=== PATIENT | male | born 1970 | race Caucasian/White ===

== ENCOUNTER 2017-04-13 02:16 | Observation (INO) | payer OTHER ==
--- NOTE | 2017-04-13 02:46 | ED PDOC ---
Arrival/HPI - General Chief Complaint: Abdominal Pain Time Seen by Provider: 04/13/17 02:24 Historian: Patient - History of Present Illness Narrative History of Present Illness (Text): 04/13/17 02:35 Dre Magdaleno is a 47 year old male, with no significant past medical history, who presents to the Emergency department complaining of epigastric pain. Patient states at 18:00 yesterday he began experiencing epigastric pain after eating earlier in the day but denies any abdominal pain currently. Patient also reports associated nausea and vomiting. Patient denies any fever, chills, chest pain, shortness of breath, diarrhea, urinary symptoms, back pain, neck pain, headache, dizziness, or any other complaints. Time/Duration: 4-6 hours Symptom Onset: Gradual Symptom Course: Improving Activities at Onset: Rest, Light Context: Home Past Medical History - Provider Review Nursing Documentation Reviewed: Yes - Psychiatric Hx Substance Use: No - Surgical History Hx Musculoskeletal Surgery: Yes (left shoulder) Family/Social History - Physician Review Nursing Documentation Reviewed: Yes Family/Social History: No Known Family HX Smoking Status: Never Smoked Hx Alcohol Use: Yes Frequency of alcohol use: Socially Hx Substance Use: No Allergies/Home Meds Allergies/Adverse Reactions: Allergies No Known Allergies Allergy (Verified 04/13/17 02:35) Review of Systems - Physician Review All systems were reviewed & negative as marked: Yes - Review of Systems Constitutional: Normal. absent: Fevers Eyes: Normal ENT: Normal Respiratory: Normal Cardiovascular: Normal. absent: Chest Pain Gastrointestinal: Abdominal Pain, Nausea, Vomiting. absent: Diarrhea Genitourinary Male: Normal. absent: Dysuria, Frequency, Hematuria, Urinary Output Changes Musculoskeletal: Normal. absent: Back Pain, Neck Pain Skin: Normal. absent: Rash Neurological: Normal. absent: Headache, Dizziness Endocrine: Normal Hemo/Lymphatic: Normal Psychiatric: Normal Physical Exam Vital Signs Reviewed: Yes Vital Signs Temp Pulse Resp BP Pulse Ox 04/13/17 05:40 98.2 F 77 18 124/84 100 04/13/17 04:21 72 13 139/88 100 04/13/17 02:38 98.6 F 79 16 135/88 98 Temperature: Afebrile Blood Pressure: Normal Pulse: Regular Respiratory Rate: Normal Appearance: Positive for: Well-Appearing, Non-Toxic, Comfortable Pain Distress: None Mental Status: Positive for: Alert and Oriented X 3 - Systems Exam Head: Present: Atraumatic, Normocephalic Pupils: Present: PERRL Extroacular Muscles: Present: EOMI Conjunctiva: Present: Normal Mouth: Present: Moist Mucous Membranes Neck: Present: Normal Range of Motion Respiratory/Chest: Present: Clear to Auscultation, Good Air Exchange. No: Respiratory Distress, Accessory Muscle Use Cardiovascular: Present: Regular Rate and Rhythm, Normal S1, S2. No: Murmurs Abdomen: Present: Normal Bowel Sounds. No: Tenderness, Distention, Peritoneal Signs Back: Present: Normal Inspection Upper Extremity: Present: Normal Inspection. No: Cyanosis, Edema Lower Extremity: Present: Normal Inspection. No: Edema Neurological: Present: GCS=15, CN II-XII Intact, Speech Normal Skin: Present: Warm, Dry, Normal Color. No: Rashes Psychiatric: Present: Alert, Oriented x 3, Normal Insight, Normal Concentration Medical Decision Making ED Course and Treatment: 04/13/17 02:35 Impression: 47 year old male complaining of epigastric pain, nausea, and vomiting. Plan: -- CT Abdomen and Pelvis with IV contrast -- EKG -- Labs, cardiac enzymes, amylase, lipase -- UA -- IV fluids -- Zofran -- Reassess and disposition Progress Notes: Reviewed EKG, NSR at [address]-segment elevations or depressions, no T-wave inversions, normal intervals. 04/13/17 04:13 Reviewed radiology, CT Abdomen and Pelvis shows: Findings are consistent with small bowel enteritis. There is mild small bowel dilation and airfluid levels suggestive of an ileus versus partial obstruction. 04/13/17 04:14 Case discussed with surgical processor process control specialist, who is aware and agrees with plan. 04/13/17 04:[address] Van, who is aware and agrees with plan. Accepts pt in to her service. Pt will go to [facility] observation for abdominal pain and intestinal obstruction. Requests Dr. Santo on consult. Pt is no acute distress. Discussed results and hospital observation plan with pt , who verbalizes understanding. Pt agreeable with plan. - Lab Interpretations Microbiology Results: Microbiology Results 04/13/17 03:00 Blood-Venous Blood Culture - Preliminary NO GROWTH AFTER 24 HOURS 04/13/17 02:45 Blood-Venous Blood Culture - Preliminary NO GROWTH AFTER 24 HOURS Lab Results: 04/13/17 02:45 04/13/17 02:45 Lab Results 04/13/17 04:10: Urine Color Yellow, Urine Appearance Clear, Urine pH 7.5, Ur Specific [place] 1.010, Urine Protein Negative, Urine Glucose (UA) Negative, Urine Ketones 15 H, Urine Blood Negative, Urine Nitrate Negative, Urine Bilirubin Negative, Urine Urobilinogen 0.2, Ur Leukocyte Esterase Negative 04/13/17 03:45: pO2 87 H, VBG pH 7.41, VBG pCO2 37.0 L, VBG HCO3 23.5, VBG Total CO2 24.6, VBG O2 Sat (Calc) 99.0 H, VBG Base Excess -0.8 L, VBG Potassium 4.0, Glucose 141 H, Lactate 2.5 H, FiO2 21.0, Sodium 136.0, Chloride 105.0, Venous Blood Potassium 4.0 04/13/17 02:45: Sodium 138, Potassium 3.8, Chloride 102, Carbon Dioxide 25, Anion Gap 15, BUN 18, Creatinine 0.8, Est GFR ( Amer) > 60, Est GFR (Non- Af Amer) > 60, Random Glucose 139 H, Calcium 9.4, Total Bilirubin 1.5 H, AST 34 , ALT 32, Alkaline Phosphatase 131, Lactate Dehydrogenase 422, Total Creatine Kinase 102, Troponin I < 0.01, Total Protein 8.1, Albumin 4.5, Globulin 3.6, Albumin/Globulin Ratio 1.3, Amylase 112, Lipase 110 04/13/17 02:45: PT 10.8, INR 1.00, APTT 23.6 L 04/13/17 02:45: WBC 19.6 H, RBC 4.99, Hgb 16.6, Hct 45.7, MCV 91.6, MCH 33.3, MCHC 36.3, RDW 11.8, Plt Count 269, MPV 9.9, Gran % 90.7 H, Lymph % (Auto) 6.1 L , [place] % (Auto) 2.8, Eos % (Auto) 0.2 L, Baso % (Auto) 0.2, Gran # 17.79 H, Lymph # 1.2, [place] # 0.6, Eos # 0.0, Baso # 0.03 I have reviewed the lab results: Yes - RAD Interpretation Narrative RAD Interpretations (Text): CT Abdomen and Pelvis shows: Lower thorax: No acute findings. ABDOMEN: Liver: Unremarkable. No mass. Gallbladder and bile ducts: Unremarkable. No calcified stones. No ductal dilation. Pancreas: Unremarkable. No mass. No ductal dilation. Spleen: Unremarkable. No splenomegaly. Adrenals: Unremarkable. No mass. Kidneys and ureters: Unremarkable. No solid mass. No hydronephrosis. Stomach and bowel: There is wall thickening the left-sided bile with mild associated inflammatory change and fluid. There air-filled levels in mildly dilated small bowel with a maximal diameter of approximately 3 cm. There is fecalization of lower pelvic small bowel as seen on series 2 image 127. There is no pneumatosis. Appendix: No findings to suggest acute appendicitis. PELVIS: Bladder: Unremarkable. No mass. Reproductive: Unremarkable as visualized. ABDOMEN and PELVIS: Intraperitoneal space: Unremarkable. No free air. No significant fluid collection. Bones/joints: No acute fracture. No dislocation. Soft tissues: Unremarkable. Vasculature: Unremarkable. No abdominal aortic aneurysm. Lymph nodes: Unremarkable. No enlarged lymph nodes. IMPRESSION: Findings are consistent with small bowel enteritis. There is mild small bowel dilation and airfluid levels suggestive of an ileus versus partial obstruction. Radiology Orders: 04/13/17 02:39 ABD & PELVIS IV CONTRAST ONLY [CT] Stat Scrub Nurse: Radiologist - EKG Interpretation Interpreted by ED Physician: Yes Type: 12 lead EKG - Medication Orders Current Medication Orders: Discontinued Medications Acetaminophen (Tylenol 325mg Tab) 650 mg PO Q4H PRN PRN Reason: Fever >100.5 F Last Admin: 04/13/17 05:24 Dose: 650 mg Re-Assess: MAR Pain/Vitals Document 04/13/17 07:55 MJO (Rec: 04/13/17 08:22 MJO [id number]) Pain Reassessment Is This A Pain ReAssessment? Yes Sleep Is patient sleeping during reassessment? No Presence of Pain Presence of Pain No Sodium Chloride (Sodium Chloride 0.9%) 1,000 mls @ 80 mls/hr IV .[id number] [facility] Last Admin: 04/13/17 13:31 Dose: 80 mls/hr Metronidazole (Flagyl) 500 mg in 100 mls @ 100 mls/hr IVPB STAT STA PRN Reason: Protocol Stop: 04/13/17 05:32 Last Admin: 04/13/17 04:45 Dose: 100 mls/hr Ceftriaxone Sodium (Rocephin 1 Gram Ivpb) 1 gm in 100 mls @ 200 mls/hr IVPB STAT STA PRN Reason: Protocol Stop: 04/13/17 05:03 Last Admin: 04/13/17 05:21 Dose: 200 mls/hr Sodium Chloride (Sodium Chloride 0.9%) 1,000 mls @ 125 mls/hr IV .Q8H STA Stop: 04/13/17 12:33 Last Admin: 04/13/17 04:46 Dose: 125 mls/hr Metronidazole (Flagyl) 500 mg in 100 mls @ 100 mls/hr IVPB Q8 ODETTE PRN Reason: Protocol Last Admin: 04/14/17 06:29 Dose: 100 mls/hr Ceftriaxone Sodium (Rocephin 1 Gram Ivpb) 1 gm in 100 mls @ 100 mls/hr IVPB DAILY ODETTE PRN Reason: Protocol Last Admin: 04/14/17 10:38 Dose: 100 mls/hr Iohexol (Omnipaque 350 100 Ml) Confirm Administered Dose 350 mg .ROUTE .STK-MED ONE Stop: 04/13/17 02:55 Ondansetron HCl (Zofran Inj) 4 mg IVP STAT STA Stop: 04/13/17 02:41 Last Admin: 04/13/17 02:49 Dose: 4 mg Pantoprazole Sodium (Protonix Inj) 40 mg IVP DAILY ODETTE Last Admin: 04/14/17 10:37 Dose: 40 mg Pneumococcal Polyvalent Vaccine (Pneumovax 23 Vaccine) 0.5 ml IM .ONCE ONE Stop: 04/13/17 06:10 - Scribe Statement The provider has reviewed the documentation as recorded by the Yoly Cardoza Provider Attestation: All medical record entries made by the Scribjaz were at my direction and personally dictated by me. I have reviewed the chart and agree that the record accurately reflects my personal performance of the history, physical exam, medical decision making, and the department course for this patient. I have also personally directed, reviewed, and agree with the discharge instructions and disposition. Disposition/Present on Arrival - Present on Arrival Any Indicators Present on Arrival: No History of DVT/PE: No History of Uncontrolled Diabetes: No Urinary Catheter: No History of Decub. Ulcer: No History Surgical Site Infection Following: None - Disposition Have Diagnosis and Disposition been Completed?: Yes Diagnosis: Small bowel obstruction Disposition: HOME/ ROUTINE Disposition Time: 04:30 Condition: FAIR
[2017-04-13] MEDS: Sodium Chloride 0.9% 1,000 ML IV SCH ×2 (02:49→13:31)
[2017-04-13 02:53] VITALS: BMI 24.5
[2017-04-13] MEDS ORDERED: Iohexol 350 MG/100 ML VIAL ONE (02:54)
[2017-04-13 02:55] LABS: ADD MANUAL DIFF? NO
[2017-04-13 03:04] LABS: BASO # 0.03 K/mm3 (0.0-2.0); BASO % 0.2 % (0.0-3.0); EOS % 0.2 % (1.5-5.0); GRAN # 17.79 (1.4-6.5); GRAN % 90.7 % (50.0-68.0); HEMATOCRIT 45.7 % (42.0-52.0); LYMPH # 1.2 (1.2-3.4); LYMPH % 6.1 % (22.0-35.0); MEAN CELL VOLUME 91.6 fL (80.0-105.0); MEAN CORPUSCULAR HEMOGLOBIN 33.3 pg (25.0-35.0); MEAN CORPUSCULAR HGB CONC 36.3 g/dl (31.0-37.0); MEAN PLATELET VOLUME 9.9 fl (7.0-11.0); MONO # 0.6 (0.1-0.6); MONO % 2.8 % (1.0-6.0); PLATELET COUNT 269 10^3/uL (120.0-450.0); RED CELL DISTRIBUTION WIDTH 11.8 % (11.5-14.5); WHITE BLOOD COUNT 19.6 10^3/ul (4.5-11.0)
[2017-04-13 03:07] LABS: ALB/GLOB RATIO 1.3 (1.1-1.8); ALKALINE PHOSPHATASE 131 U/L (38-133); ALT/SGPT 32 U/L (7-56); AMYLASE 112 U/L (35-125); AST/SGOT 34 U/L (15-59); BILIRUBIN,TOTAL 1.5 mg/dL (0.2-1.3); BLOOD UREA NITROGEN 18 mg/dL (7-21); CALCIUM 9.4 mg/dL (8.4-10.5); CARBON DIOXIDE 25 mmol/L (21-33); CHLORIDE 102 mmol/L (98-107); GFR AFRICAN-AMERICAN > 60; GLUCOSE,RANDOM 139 mg/dL (70-110); LIPASE 110 U/L (23-300); POTASSIUM 3.8 mmol/L (3.6-5.0); SODIUM 138 mmol/L (132-148); TOTAL PROTEIN 8.1 g/dL (5.8-8.3)
[2017-04-13 03:09] LABS: PARTIAL THROMBOPLASTIN TIME 23.6 Seconds (23.7-30.8)
[2017-04-13 03:19] LABS: TROPONIN I < 0.01 ng/mL
[2017-04-13 03:54] LABS: VENOUS BLOOD GAS BASE EXCESS -0.8 mmol/L (0.0-2.0); VENOUS BLOOD PH 7.41 (7.32-7.43)
[2017-04-13] MEDS ORDERED: metroNIDAZOLE IV 500 mg/100 ml 500 MG/100 ML BAG IVPB STA (04:33)
[2017-04-13] MEDS ORDERED: Sodium Chloride 0.9% 1,000 ML IV STA (04:34)
[2017-04-13] MEDS ORDERED: cefTRIAXone 1 gm 1 GM/100 ML BAG IVPB STA (04:34)
[2017-04-13 04:41] LABS: PH,URINE 7.5 (4.7-8.0); URINE BILIRUBIN NEGATIVE (NEGATIVE); URINE BLOOD NEGATIVE (NEGATIVE); URINE GLUCOSE (UA) NEGATIVE (NEGATIVE); URINE KETONE 15 mg/dL (NEGATIVE); URINE LEUKOCYTE ESTERASE NEGATIVE Leu/uL (NEGATIVE); URINE PROTEIN NEGATIVE mg/dL (<30 mg/dL); URINE UROBILINOGEN 0.2 E.U./dL (<1 E.U./dL)
[2017-04-13 04:43] LABS: URINE APPEARANCE CLEAR (CLEAR); URINE COLOR YELLOW (YELLOW)
--- NOTE | 2017-04-13 05:08 | CP.PCM.CON ---
History of Present Illness - History of Present Illness History of Present Illness: General Surgery Consult Note: Dr. Santo 47M w/ no significant PMHx presented to the ED with complaints of abdominal pain. Patient states pain began around 6 PM (04/12/17). Patient reports having had a meal consisting of fish and sweet potatoes around 3PM, he then took a nap and woke up with abdominal pain 3 hours later. Patient states abdominal pain was cramping in nature and was localized to allan-umbilical region. He went to [employer] at 7PM and patient reports having a LARGE meal consisting of pasta and sweets after service. Patient mentioned he had 3 bouts of emesis the first one being an hour after the meal. Patient reports vomit consisted of undigested food contents, non-bloody, non-bilious. At time of examination patient reports a decrease in pain from a 9/10 initially, to currently a 5/10. Patient admits he still feels some cramping along allan-umbilical region. Currently patient denies fever/chills, chest pain/SOB, n/v. Review of vitals is stable. Patient reports his last bowel movement was yesterday morning. Denies passing flatus since onset of events. PMHx: as stated above PSurgHx: none Allergies: NKDA Soc Hx: denies smoking. EtOH use in social settings. Denies illicit drug use Review of Systems - Review of Systems Review of Systems: 12pt ROS carried out, unremarkable, except as stated in HPI Past Patient History - Past Social History Smoking Status: Never Smoked - PSYCHIATRIC Hx Substance Use: No - SURGICAL HISTORY Hx Musculoskeletal Surgery: Yes (left shoulder) Meds Allergies/Adverse Reactions: Allergies Allergy/AdvReac Type Severity Reaction Status Date / Time No Known Allergies Allergy Verified 04/13/17 02:35 - Medications Medications: Current Medications Acetaminophen (Tylenol 325mg Tab) 650 mg PO Q4H PRN PRN Reason: Fever >100.5 F Sodium Chloride (Sodium Chloride 0.9%) 1,000 mls @ 80 mls/hr IV .[id number] [facility] Last Admin: 04/13/17 02:49 Dose: 80 mls/hr Metronidazole (Flagyl) 500 mg in 100 mls @ 100 mls/hr IVPB STAT STA PRN Reason: Protocol Stop: 04/13/17 05:32 Last Admin: 04/13/17 04:45 Dose: 100 mls/hr Ceftriaxone Sodium (Rocephin 1 Gram Ivpb) 1 gm in 100 mls @ 200 mls/hr IVPB STAT STA PRN Reason: Protocol Stop: 04/13/17 05:03 Sodium Chloride (Sodium Chloride 0.9%) 1,000 mls @ 125 mls/hr IV .Q8H STA Stop: 04/13/17 12:33 Last Admin: 04/13/17 04:46 Dose: 125 mls/hr Metronidazole (Flagyl) 500 mg in 100 mls @ 100 mls/hr IVPB Q8 ODETTE PRN Reason: Protocol Ceftriaxone Sodium (Rocephin 1 Gram Ivpb) 1 gm in 100 mls @ 100 mls/hr IVPB DAILY ODETTE PRN Reason: Protocol Ondansetron HCl (Zofran Inj) 4 mg IVP Q6H PRN PRN Reason: Nausea/Vomiting Physical Exam - Constitutional Appears: No Acute Distress - Head Exam Head Exam: NORMOCEPHALIC - Eye Exam Eye Exam: Normal appearance - ENT Exam ENT Exam: Mucous Membranes Moist - Respiratory Exam Respiratory Exam: NORMAL BREATHING PATTERN - Cardiovascular Exam Cardiovascular Exam: +S1, +S2. absent: Tachycardia - GI/Abdominal Exam GI & Abdominal Exam: Diminished Bowel Sounds, Distended, Soft. absent: Guarding , Rebound, Rigid, Tenderness Additional comments: mild distension - Extremities Exam Extremities exam: Negative for: pedal edema - Neurological Exam Neurological exam: Alert, Oriented x3 - Psychiatric Exam Psychiatric exam: Normal Mood - Skin Skin Exam: Dry, Intact, Warm Results - Vital Signs Recent Vital Signs: Last Vital Signs Temp 98.6 F 04/13/17 02:38 Pulse 72 04/13/17 04:21 Resp 13 04/13/17 04:21 BP 139/88 04/13/17 04:21 Pulse Ox 100 04/13/17 04:21 - Labs Result Diagrams: 04/13/17 02:45 04/13/17 02:45 Labs: Laboratory Results - last 24 hr 04/13/17 04/13/17 04/13/17 02:45 02:45 02:45 WBC 19.6 H RBC 4.99 Hgb 16.6 Hct 45.7 MCV 91.6 MCH 33.3 MCHC 36.3 RDW 11.8 Plt Count 269 MPV 9.9 Gran % 90.7 H Lymph % (Auto) 6.1 L [place] % (Auto) 2.8 Eos % (Auto) 0.2 L Baso % (Auto) 0.2 Gran # 17.79 H Lymph # 1.2 [place] # 0.6 Eos # 0.0 Baso # 0.03 PT 10.8 INR 1.00 APTT 23.6 L pO2 VBG pH VBG pCO2 VBG HCO3 VBG Total CO2 VBG O2 Sat (Calc) VBG Base Excess VBG Potassium Glucose Lactate FiO2 Sodium 138 Potassium 3.8 Chloride 102 Carbon Dioxide 25 Anion Gap 15 BUN 18 Creatinine 0.8 Est GFR ( Amer) > 60 Est GFR (Non-Af Amer) > 60 Random Glucose 139 H Calcium 9.4 Total Bilirubin 1.5 H AST 34 ALT 32 Alkaline Phosphatase 131 Lactate Dehydrogenase 422 Total Creatine Kinase 102 Troponin I < 0.01 Total Protein 8.1 Albumin 4.5 Globulin 3.6 Albumin/Globulin Ratio 1.3 Amylase 112 Lipase 110 Venous Blood Potassium Urine Color Urine Appearance Urine pH Ur Specific [place] Urine Protein Urine Glucose (UA) Urine Ketones Urine Blood Urine Nitrate Urine Bilirubin Urine Urobilinogen Ur Leukocyte Esterase 04/13/17 04/13/17 03:45 04:10 WBC RBC Hgb Hct MCV MCH MCHC RDW Plt Count MPV Gran % Lymph % (Auto) [place] % (Auto) Eos % (Auto) Baso % (Auto) Gran # Lymph # [place] # Eos # Baso # PT INR APTT pO2 87 H VBG pH 7.41 VBG pCO2 37.0 L VBG HCO3 23.5 VBG Total CO2 24.6 VBG O2 Sat (Calc) 99.0 H VBG Base Excess -0.8 L VBG Potassium 4.0 Glucose 141 H Lactate 2.5 H FiO2 21.0 Sodium 136.0 Potassium Chloride 105.0 Carbon Dioxide Anion Gap BUN Creatinine Est GFR ( Amer) Est GFR (Non-Af Amer) Random Glucose Calcium Total Bilirubin AST ALT Alkaline Phosphatase Lactate Dehydrogenase Total Creatine Kinase Troponin I Total Protein Albumin Globulin Albumin/Globulin Ratio Amylase Lipase Venous Blood Potassium 4.0 Urine Color Yellow Urine Appearance Clear Urine pH 7.5 Ur Specific [place] 1.010 Urine Protein Negative Urine Glucose (UA) Negative Urine Ketones 15 H Urine Blood Negative Urine Nitrate Negative Urine Bilirubin Negative Urine Urobilinogen 0.2 Ur Leukocyte Esterase Negative - Imaging and Cardiology CT scan - abdomen Status: Image reviewed by me, Report reviewed by me Assessment & Plan - Assessment and Plan (Free Text) Assessment: 47M w/ enteritis and possible SBO v ileus Plan: -NPO -IVF -Abx -Analgesic/anti-emetic -F/u lactic acid level -F/u AM labs -GI/DVT ppx -Recommend NGT insertion in case of abdominal distension/emesis -Further recs per Dr. Santo
[2017-04-13] MEDS ORDERED: Pneumococcal 23-Valent Vaccine IM ONE (06:09)
[2017-04-13 07:34] LABS: ADD MANUAL DIFF? NO
[2017-04-13 07:59] LABS: BASO # 0.03 K/mm3 (0.0-2.0); BASO % 0.2 % (0.0-3.0); EOS % 0.1 % (1.5-5.0); GRAN % 89.2 % (50.0-68.0); HEMATOCRIT 43.7 % (42.0-52.0); LYMPH # 1.3 (1.2-3.4); LYMPH % 8.1 % (22.0-35.0); MEAN CELL VOLUME 93.4 fL (80.0-105.0); MEAN CORPUSCULAR HEMOGLOBIN 32.9 pg (25.0-35.0); MEAN CORPUSCULAR HGB CONC 35.2 g/dl (31.0-37.0); MEAN PLATELET VOLUME 10.4 fl (7.0-11.0); MONO # 0.4 (0.1-0.6); MONO % 2.4 % (1.0-6.0); PLATELET COUNT 266 10^3/uL (120.0-450.0); RED CELL DISTRIBUTION WIDTH 12.1 % (11.5-14.5); WHITE BLOOD COUNT 16.4 10^3/ul (4.5-11.0)
--- NOTE | 2017-04-13 08:10 | CT ---
PROCEDURE: CT Abdomen and Pelvis with contrast HISTORY: abd pain COMPARISON: None. TECHNIQUE: Axial images of the abdomen were obtained in the pre contrast, portal venous phase of enhancement. Coronal and sagittal reformats were generated. Contrast dose: 100 mL. Radiation dose: Total exam DLP = 337.34 mGy-cm. This CT exam was performed using one or more of the following dose reduction techniques: Automated exposure control, adjustment of the mA and/or kV according to patient size, and/or use of iterative reconstruction technique. FINDINGS: LOWER THORAX: Lung bases are clear. Small hiatal hernia. LIVER: Sub centimeter hypodensity near the dome of the liver, too small to characterize accurately however most likely represent cyst or hemangioma. GALLBLADDER AND BILE DUCTS: Unremarkable. PANCREAS: Unremarkable. No gross lesion or ductal dilatation. SPLEEN: Unremarkable. ADRENALS: Unremarkable. No mass. KIDNEYS AND URETERS: Unremarkable. No hydronephrosis. No solid mass. VASCULATURE: Unremarkable. No aortic aneurysm. BOWEL: Dilated loops of small bowel suggestive of small bowel obstruction. Transition point most likely in the right lower quadrant. Additionally, there is wall thickening also left-sided small bowel loops. This is associated with mild inflammatory change within surrounding small amount of fluid. No definite pneumatosis noted. Relatively collapsed colon limiting evaluation. APPENDIX: Normal appendix. PERITONEUM: Small fluid in the pelvis. Fluid also seen within the small bowel mesentery. LYMPH NODES: No bulky intra-abdominal lymphadenopathy identified. BLADDER: Unremarkable. REPRODUCTIVE: Enlarged prostate with calcifications. BONES: No fracture. Degenerative changes at L4-L5. No compressive deformity involving the spine. OTHER FINDINGS: None. IMPRESSION: Findings consistent with partial small bowel obstruction the transition point most likely in the right lower quadrant. Superimposed wall thickening is suggestive of inflammatory changes. Relatively collapsed colon limiting evaluation. Please note that this report is in general agreement with the preliminary report provided by [facility].
[2017-04-13 08:41] LABS: ALB/GLOB RATIO 1.1 (1.1-1.8); ALKALINE PHOSPHATASE 100 U/L (38-133); ALT/SGPT 33 U/L (7-56); AST/SGOT 23 U/L (15-59); BILIRUBIN,TOTAL 1.1 mg/dL (0.2-1.3); BLOOD UREA NITROGEN 15 mg/dL (7-21); CALCIUM 8.5 mg/dL (8.4-10.5); CARBON DIOXIDE 26 mmol/L (21-33); CHLORIDE 104 mmol/L (98-107); GFR AFRICAN-AMERICAN > 60; GLUCOSE,RANDOM 104 mg/dL (70-110); POTASSIUM 3.9 mmol/L (3.6-5.0); SODIUM 138 mmol/L (132-148)
[2017-04-13 10:12] LABS: VENOUS BLOOD GAS BASE EXCESS 0.6 mmol/L (0.0-2.0); VENOUS BLOOD PH 7.33 (7.32-7.43)
--- NOTE | 2017-04-13 10:44 | CARD ---
APPROVED REPORT EKG Measurement Heart [id number] <Conclusion> Normal sinus rhythm LVH by voltage
[2017-04-13] MEDS: metroNIDAZOLE IV 500 mg/100 ml 500 MG/100 ML BAG IVPB SCH ×2 (13:30→21:59)
--- NOTE | 2017-04-13 19:55 | CON ---
DATE: 04/13/2017 This patient was seen and evaluated earlier. This is a 47-year-old patient with no significant past medical history, had some fish and sweet potatoes around 3:00 p.m. He had noticed some abdominal dis comfort around 6:00 p.m. He had another big meal around 9:00 p.m. After that he noticed more abdomi nal cramping and discomfort and vomited undigested food. He presented to the Emergency Room. He nev er had this episode before. He mentioned that his also ate the same fish, but she was okay. No diarrhea. The patient denies any surgical history. PAST MEDICAL HISTORY: Nothing significant, no surgery. ALLERGIES: No known drug allergies. SOCIAL HISTORY: Denies smoking, alcohol only occasionally, social use. REVIEW OF SYSTEMS: Positive as above. All other systems reviewed and negative. PHYSICAL EXAMINATION: GENERAL: The patient is lying on the bed, not in acute distress. Feels much better. Tolerating maribell ar liquids. VITAL SIGNS: Temperature 98.5, pulse 97, blood pressure 112/68. HEENT: Atraumatic, anicteric. NECK: Supple. HEART: S1, S2 heard. LUNGS: Bilateral air entry present. ABDOMEN: Soft. There is no mass palpable. No tenderness. EXTREMITIES: No edema, no cyanosis. NEUROLOGIC: Alert, oriented. Moves all the extremities. LABORATORY DATA: Hemoglobin 9.8, hematocrit 29.9, WBC 5.3, platelets 451, BUN is 8, creatinine 0.5. WBC count was 19.6 when he came and it has improved to 16.4. The CT scan of the abdomen and pelvis was reviewed, of the small-bowel obstruction with a transition point at the right lower quadran t area and some inflammatory changes surrounding that area. IMPRESSION: This is a 47-year-old patient with no significant past medical history admitted with a s mall-bowel obstruction. The patient's CT shows possible transition point in the terminal ileum with some inflammatory changes. The patient does have leukocytosis, it was 19,000 and it has come down to 16,000. The differential diagnosis include infectious enteritis versus inflammatory bowel disease. RECOMMEND: 1. To will continue with a clear liquid diet. 2. Continue the empiric antibiotic therapy. 3. Will get an abdominal x-ray, a flat plate, in the a.m. The patient did have the CT scan with onl y IV contrast. We may consider CT with oral contrast depending upon the followup abdominal x-ray. The patient was cleared. I discussed with the patient at length. The patient clearly needs further evaluation if needed based on the clinical course of the patient as an outpatient. Will slowly advan ce the diet after reviewing the x-ray and also clinical course of the patient in a.m. Dar Mauro MD cc: [id number] TT: 04/13/2017 19:55:16 Confirmation # [id number] Dictation # [id number] dn
--- NOTE | 2017-04-13 20:02 | HP ---
HISTORY OF PRESENT ILLNESS: This 47-year-old male presented to [facility] ER complaining of epigastric pain associated with nausea and vomiting after eating last evening, and while in the ER, he was noted to have leukocytosis and an ileus. He was admitted for further evaluation of the above. He has been seen by Dr. Jairo Santo from surgery whose plans are to continue IV fluids, IV antibiotics and monitor the patient's clinical progress. The patient was initially made n.p.o. and I have also requested a GI evaluation with Dr. Dar Mo regarding his ileus. On questioning the patient, he has no significant past medical history. He denies any abdominal surgery in the past. 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 FAMILY HISTORY: Noncontributory. REVIEW OF SYSTEMS: CONSTITUTIONAL: He denied any fever or chills. HEAD: Denied any knowledge of headache or seizures. EYES: Denied any visual changes. EARS: No hearing loss. THROAT: No swallowing difficulty. NECK: No stiffness. CARDIAC: No history of hypertension or angina. PULMONARY: No cough, no hemoptysis. GASTROINTESTINAL: He had vomiting with a bowel movement yesterday, none today, and no knowledge of peptic ulcer disease or melena. GENITOURINARY: No dysuria. SKIN: Without rash. NEUROLOGIC: He has no knowledge of stroke. VASCULAR: No claudication. ALLERGIES: He has no known allergies to medications. MEDICATIONS: He takes no prescription medication at this time. PHYSICAL EXAMINATION: VITAL SIGNS: Temperature 98.2, respirations 18, pulse 77, blood pressure 124/ 84 with a pulse ox of 100% on room air. HEENT: Normocephalic, atraumatic. Eyes: No icterus. Ears clear. Throat not injected. NECK: Supple. HEART: Regular S1, S2. No pathological rubs, murmurs, or gallops. LUNGS: Clear. ABDOMEN: With active bowel sounds in all 4 quadrants. No rebound, no guarding , no tenderness. EXTREMITIES: No clubbing, no cyanosis, no edema. SKIN: Without rash. NEUROLOGICAL: Intact. PSYCHOLOGICAL: Alert. VASCULAR: Legs warm to touch. LABORATORY DATA: Initial white count with 19,600; presently 16,400. Hemoglobin 15.4, hematocrit 43.7, platelets 266,000. PT/INR 1.0, PTT 23.6. Sodium 138, K 3.9, chloride 104, bicarb 26, BUN 15, creatinine 0.8, random blood sugar 104. All liver function testing was normal including bilirubin 1.1 , AST 23, ALT 33, alkaline phosphatase 100. Amylase 112, normal. Lipase 110, normal. Urinalysis unremarkable. Abdominal pelvic CT showed findings consistent with partial small-bowel obstruction. EKG showed normal sinus rhythm with nonspecific ST-T wave changes. IMPRESSION: A 47-year-old male with an acute ileus being monitored by surgery, probably secondary to gastroenteritis, rule out small-bowel obstruction. PLAN: For the patient to remain n.p.o. until further evaluated by surgery while receiving IV fluids, IV antibiotics and antiemetics for nausea and vomiting showed that evolve and also to continue IV Protonix with the understanding that should the patient have any further vomiting, an NG tube would be inserted. The patient is also receiving Zofran p.r.n. nausea and vomiting. I have placed a consultation with Dr. Dar Mauro from GI. He has scheduled the patient for repeat comprehensive metabolic panel and CBC in the a.m. while blood cultures are still pending. He will have a followup abdominal x-ray to rule out ileus at this point in time since his clinical symptoms seem better. He will continue on IV Rocephin and IV Flagyl pending the results of his cultures and he is also receiving IV fluids and will have his diet advanced as per surgery. All of this has been discussed in detail with the patient and his [id number], Tami, at the bedside and greater than 50 minutes was spent in the care, coordination of care, review of care with this patient, his family, his nursing staff and co-consultants today. Overall prognosis remains stable at present. Cassandra Van MD cc: [id number] TT: 04/13/2017 20:01:07 sam HILLIARD
[2017-04-14] MEDS: metroNIDAZOLE IV 500 mg/100 ml 500 MG/100 ML BAG IVPB SCH (06:29)
[2017-04-14 06:48] LABS: ADD MANUAL DIFF? NO
[2017-04-14 07:07] LABS: BASO # 0.07 K/mm3 (0.0-2.0); BASO % 0.8 % (0.0-3.0); EOS # 0.3 (0.0-0.7); EOS % 2.8 % (1.5-5.0); GRAN # 6.23 (1.4-6.5); GRAN % 67.8 % (50.0-68.0); LYMPH # 2.1 (1.2-3.4); LYMPH % 23.3 % (22.0-35.0); MEAN CELL VOLUME 95.6 fL (80.0-105.0); MEAN CORPUSCULAR HEMOGLOBIN 32.4 pg (25.0-35.0); MONO # 0.5 (0.1-0.6); MONO % 5.3 % (1.0-6.0); PLATELET COUNT 250 10^3/uL (120.0-450.0); RED CELL DISTRIBUTION WIDTH 12.2 % (11.5-14.5); WHITE BLOOD COUNT 9.2 10^3/ul (4.5-11.0)
--- NOTE | 2017-04-14 07:21 | CP.PCM.PN ---
Subjective - Date & Time of Evaluation Date of Evaluation: 04/14/17 Time of Evaluation: 07:30 - Subjective Subjective: General Surgery Progress Note for Xiomara Mathew, PGY-1 Patient was seen and examined at bedside this morning. Pt is in no acute distress and has no complaints at this time. He is tolerating heart healthy diet. Pt reports having a bm this AM. Pt denied fever, abdominal pain, n/v/d/c. Objective - Vital Signs/Intake and Output Vital Signs (last 24 hours): Temp Pulse Resp BP Pulse Ox 98.0 F 62 18 106/67 98 04/13/17 16:00 04/13/17 16:00 04/13/17 16:00 04/13/17 16:00 04/13/17 16:00 Intake and Output: 04/14/17 04/14/17 06:59 18:59 Intake Total 480 Balance 480 - Medications Medications: Current Medications Acetaminophen (Tylenol 325mg Tab) 650 mg PO Q4H PRN PRN Reason: Fever >100.5 F Last Admin: 04/13/17 05:24 Dose: 650 mg Sodium Chloride (Sodium Chloride 0.9%) 1,000 mls @ 80 mls/hr IV .[id number] ODETTE Last Admin: 04/13/17 13:31 Dose: 80 mls/hr Metronidazole (Flagyl) 500 mg in 100 mls @ 100 mls/hr IVPB Q8 ODETTE PRN Reason: Protocol Last Admin: 04/14/17 06:29 Dose: 100 mls/hr Ceftriaxone Sodium (Rocephin 1 Gram Ivpb) 1 gm in 100 mls @ 100 mls/hr IVPB DAILY ODETTE PRN Reason: Protocol Ondansetron HCl (Zofran Inj) 4 mg IVP Q6H PRN PRN Reason: Nausea/Vomiting Pantoprazole Sodium (Protonix Inj) 40 mg IVP DAILY [facility] Last Admin: 04/13/17 10:06 Dose: 40 mg - Labs Labs: 04/14/17 06:30 04/13/17 08:00 PT 10.8 Seconds (9.9-11.8) 04/13/17 02:45 INR 1.00 (0.93-1.08) 04/13/17 02:45 APTT 23.6 Seconds (23.7-30.8) L 04/13/17 02:45 - Constitutional Appears: Well, No Acute Distress - Head Exam Head Exam: ATRAUMATIC, NORMAL INSPECTION, NORMOCEPHALIC - Eye Exam Eye Exam: EOMI, Normal appearance, PERRL Pupil Exam: NORMAL ACCOMODATION, PERRL - ENT Exam ENT Exam: Mucous Membranes Moist, Normal Exam - Neck Exam Neck Exam: Full ROM, Normal Inspection. absent: Lymphadenopathy - Respiratory Exam Respiratory Exam: Clear to Ausculation Bilateral, NORMAL BREATHING PATTERN - Cardiovascular Exam Cardiovascular Exam: REGULAR RHYTHM, +S1, +S2. absent: Murmur - GI/Abdominal Exam GI & Abdominal Exam: Soft, Normal Bowel Sounds. absent: Tenderness - Extremities Exam Extremities Exam: Full ROM, Normal Capillary Refill, Normal Inspection. absent : Joint Swelling, Pedal Edema - Neurological Exam Neurological Exam: Alert, Awake, CN II-XII Intact, Normal Gait, Oriented x3 - Psychiatric Exam Psychiatric exam: Normal Affect, Normal Mood - Skin Skin Exam: Dry, Intact, Normal Color, Warm Assessment and Plan - Assessment and Plan (Free Text) Assessment: 47 M admitted with enteritis vs partial SBO - Tolerating heart healthy diet, no reports of abdominal pain - Had a bowel movement - WBC downtrending - Pt is cleared from Surgical standpoint as no further intervention indicated, will recommend outpt fu with upper gi series Seen reviewed and discussed with attending
[2017-04-14 08:02] LABS: ALB/GLOB RATIO 1.1 (1.1-1.8); ALKALINE PHOSPHATASE 63 U/L (38-133); ALT/SGPT 34 U/L (7-56); AST/SGOT 30 U/L (15-59); BILIRUBIN,TOTAL 0.8 mg/dL (0.2-1.3); BLOOD UREA NITROGEN 14 mg/dL (7-21); CALCIUM 8.2 mg/dL (8.4-10.5); CARBON DIOXIDE 26 mmol/L (21-33); CHLORIDE 105 mmol/L (98-107); GFR AFRICAN-AMERICAN > 60; GLUCOSE,RANDOM 107 mg/dL (70-110); POTASSIUM 3.9 mmol/L (3.6-5.0); SODIUM 140 mmol/L (132-148); TOTAL PROTEIN 6.2 g/dL (5.8-8.3)
[2017-04-14 08:37] VITALS: BP 123/74; PULSE 69; RESP 16; TEMP 97.9; O2SAT 99
[2017-04-14] MEDS ORDERED: cefTRIAXone 1 gm 1 GM/100 ML BAG IVPB SCH (10:00)
--- NOTE | 2017-04-14 10:06 | RAD ---
HISTORY: abd pain COMPARISON: No prior. FINDINGS: BOWEL: Normal. No obstruction. No free air. BONES: Normal. OTHER FINDINGS: None. IMPRESSION: No active disease.
--- NOTE | 2017-04-14 18:35 | DS ---
FINAL DIAGNOSES: Gastroenteritis, resolved; ileus resolved. DISPOSITION: Home. FOLLOWUP: With gastroenetrology/ Dr. Dar Mauro from . DISCHARGE MEDICATIONS: As written by Dr. Mauro Cipro 500mg po bid # 10, Flagyl 500mg po tid # 15. SUMMARY: This 47-year-old male who presented to [facility] Emergency Room with signs and symptoms of gastroenteritis and clinical, radiographic findings of a partial small-bowel obstruction. The patient was admitted, seen by surgeon, Dr. Jairo Santo and Dr. Dar Mauro from GI. The patient's clinical presentation was consistent with gastroenteritis, and the patient was initially kept n.p.o., given IV fluids, IV antibiotics and IV antacids. He was closely monitored by both gastroenterology and surgery. His diet was advanced. He had a bowel movement. All pain resolved and he had a followup abdominal x-ray on the morning of Saturday 04/14 that showed no active disease, no obstruction and no free air. He was cleared for discharge by both Dr. Jairo Santo from surgery and Dr. Dar Mauro from GI with whom I have told him that he should have outpatient followup and to discuss elective endoscopy and colonoscopy and any further testing GI deems appropriate. At the time of his discharge, his vital signs were temperature of 97.9, respirations 16 , pulse 69 and blood pressure 123/74 with a pulse ox of 99% on room air. His laboratories showed white count 9200, hemoglobin 14.6, hematocrit 43.0, platelets 250,000. PT/INR 1.0, PTT 23.6. Sodium 140, K 3.9, chloride 105, bicarbonate 26, BUN 14, creatinine 1.0, random blood sugar 107. All liver function testing was normal including bilirubin 0.8, AST 30, ALT 34, alkaline phosphatase 63. Amylase normal at 112. Lipase normal 110. Urinalysis unremarkable. The patient is discharged to home, is aware that he is to follow up with Dr. Mauro as recommended and for any change in signs and symptoms to present directly to the [facility] Emergency Room. Cassandra Van MD cc: [id number] TT: 04/14/2017 18:34:54 cedrick HILLIARD
--- NOTE | 2017-04-14 22:32 | PN ---
DATE: 04/14/2017 SUBJECTIVE: This patient was seen and evaluated earlier today. The abdominal x -ray was reviewed and discussed also with Dr. Santo. The patient is tolerating the diet. No complaints of any abdominal pain. PHYSICAL EXAMINATION: VITAL SIGNS: His temperature is 97.9, pulse 69, blood pressure 123/74, respirations 18, O2 saturation 99%. HEENT: Atraumatic, anicteric. NECK: Supple. HEART: S1, S2 heard. LUNGS: Bilateral air entry present. ABDOMEN: Soft. There is no mass palpable. No tenderness. EXTREMITIES: No edema, no cyanosis. NEUROLOGIC: Alert, oriented. Moves all the extremities. SKIN: Intact. LABORATORY DATA: Abdominal x-rays reviewed. CT also reviewed again. Lab work essentially unremarkable, both CMP and . The patient did have 3 episodes of loose bowel movements present. IMPRESSION/PLAN: This is a 47-year-old patient with no significant past medical history admitted with abdominal pain, clinically suggestive of small- bowel obstruction with possible narrowing in the right lower quadrant area; however, the CT was done with no oral contrast, only IV contrast was used. The patient is now tolerating the diet with no complaints. The differential diagnosis should include infectious gastroenteritis versus enteritis and small bowel lesion also. Other small bowel etiology for stricture also has to be considered. The patient never had any episodes in the past. The reasonable thing is, at this point, the patient to be discharged home with a short course of antibiotics. The patient did have a white cell count was 19,000 when he came in. He will complete his antibiotic for another 5 days. blood culture has been negative. The patient was strongly advised to follow up with a hydraulic blocker and also find a primary doctor. The patient was clearly told for the need for further workup in view of this small bowel obstructive pattern. The patient fully understood. Our office contact details also given. Also discussed with Dr. Van. Thank you very much for allowing us to participate in the care of the patient. Dar Mauro MD cc: [id number] TT: 04/14/2017 22:32:18 Confirmation # [id number] Dictation # [id number] sam HILLIARD
== END 2017-04-14 18:12 | disposition home or self-care (01) ==
LOC: ED 02:16 → ERH 04:39 → 5RNO 05:36
PROVIDERS: ADMIT Internal Medicine; ATTEND Internal Medicine
DX: K52.9 Noninfective gastroenteritis and colitis, unspecified (principal); K56.7 Ileus, unspecified
CPT/HCPCS: 36415; 74000; 74177; 80053; 81003; 82150; 82550; 82803; 83605; 83615; 83690; 84484; 85025; 85610; 85730; 87040; 93005; 96361; 96365; 96366; 96367; 96375; 96376; 99285; C9113; G0378; J0696; J2405; J7040; Q9967